=== PATIENT | male | born 1940 | race Caucasian/White ===

== ENCOUNTER 2022-06-24 10:59 | Inpatient (IN) | payer MEDICARE ==
[2022-06-24] MEDS ORDERED: Naloxone 0.4 MG/ML SDV IM PRN (16:22)
[2022-06-24] MEDS ORDERED: Magnesium Hydroxide 400 MG/5 ML Susp 30 ML Cup PO PRN (16:22)
[2022-06-24] MEDS ORDERED: oxyCODONE 5 MG Tab PO PRN (16:22)
[2022-06-24] MEDS ORDERED: Diclofenac Sodium 1% Gel 100 GM Tube TOP PRN (16:22)
[2022-06-24] MEDS ORDERED: Acetaminophen 325 MG Tab PO SCH (16:30)
[2022-06-24] MEDS ORDERED: traMADol 50 MG Tab PO SCH (16:30)
[2022-06-24] MEDS: Aspirin 325 MG Tab PO SCH (17:32)
[2022-06-24] MEDS: traMADol 50 MG Tab PO SCH ×2 (17:33→23:44)
[2022-06-24] MEDS ORDERED: Brimonidine 0.2% Ophth Soln 5 ML Bottle EYEBOTH SCH (18:00)
[2022-06-24] MEDS ORDERED: Timolol Maleate 0.5% Ophth Soln 5 ML Bottle EYEBOTH SCH (18:00)
[2022-06-24] MEDS: Pravastatin 20 MG Tab PO SCH (20:03)
[2022-06-24] MEDS: Tamsulosin 0.4 MG Cap.ER PO SCH (20:03)
[2022-06-24] MEDS: Acetaminophen 325 MG Tab PO SCH (20:04)
[2022-06-24] MEDS: Timolol Maleate 0.5% Ophth Soln 5 ML Bottle EYEBOTH SCH (20:05)
[2022-06-24] MEDS: Brimonidine 0.2% Ophth Soln 5 ML Bottle EYEBOTH SCH (20:07)
[2022-06-24] MEDS: Latanoprost 0.005% Ophth Soln 2.5 ML Bottle EYEBOTH SCH (20:07)
[2022-06-25] MEDS: Acetaminophen 325 MG Tab PO SCH ×4 (02:14→20:05)
[2022-06-25] MEDS: traMADol 50 MG Tab PO SCH ×3 (06:26→17:08)
[2022-06-25] MEDS: Metoprolol Succinate 25 MG Tab.ER PO SCH (07:04)
[2022-06-25] MEDS: Finasteride 5 MG Tab PO SCH (07:08)
[2022-06-25] MEDS: Aspirin 325 MG Tab PO SCH ×2 (07:08→17:08)
[2022-06-25] MEDS: Potassium Chloride 10 MEQ Tab.ER PO SCH (07:09)
[2022-06-25] MEDS: Omeprazole 20 MG Cap.CR PO SCH (07:09)
[2022-06-25] MEDS: Fish Oil/Omega-3 Fatty Acids 1 Gm Cap PO SCH (07:09)
[2022-06-25] MEDS: Magnesium Oxide 400 MG Tab PO SCH (07:09)
[2022-06-25] MEDS: Lisinopril 10 MG Tab PO SCH (07:10)
[2022-06-25] MEDS: Levothyroxine 75 MCG Tab PO SCH (07:10)
[2022-06-25] MEDS: Hydrochlorothiazide 25 MG Tab PO SCH (07:10)
[2022-06-25] MEDS: Calcium Carbonate/Vitamin D3 1500 MG-400 Units Tab PO SCH (07:11)
[2022-06-25] MEDS: Timolol Maleate 0.5% Ophth Soln 5 ML Bottle EYEBOTH SCH ×2 (07:12→20:04)
[2022-06-25] MEDS: Brimonidine 0.2% Ophth Soln 5 ML Bottle EYEBOTH SCH ×2 (07:12→20:04)
[2022-06-25] MEDS: Polyethylene Glycol 3350 Powder 17 GM Packet PO SCH (07:12)
[2022-06-25] MEDS: Latanoprost 0.005% Ophth Soln 2.5 ML Bottle EYEBOTH SCH (20:04)
[2022-06-25] MEDS: Pravastatin 20 MG Tab PO SCH (20:06)
[2022-06-25] MEDS: Tamsulosin 0.4 MG Cap.ER PO SCH (20:07)
[2022-06-26] MEDS: traMADol 50 MG Tab PO SCH ×5 (00:58→17:50)
[2022-06-26] MEDS: Acetaminophen 325 MG Tab PO SCH ×4 (04:38→20:00)
[2022-06-26] MEDS: Aspirin 325 MG Tab PO SCH ×2 (07:38→17:50)
[2022-06-26] MEDS: Fish Oil/Omega-3 Fatty Acids 1 Gm Cap PO SCH (07:38)
[2022-06-26] MEDS: Omeprazole 20 MG Cap.CR PO SCH (07:39)
[2022-06-26] MEDS: Potassium Chloride 10 MEQ Tab.ER PO SCH (07:39)
[2022-06-26] MEDS: Finasteride 5 MG Tab PO SCH (07:39)
[2022-06-26] MEDS: Levothyroxine 75 MCG Tab PO SCH (07:39)
[2022-06-26] MEDS: Calcium Carbonate/Vitamin D3 1500 MG-400 Units Tab PO SCH (07:39)
[2022-06-26] MEDS: Magnesium Oxide 400 MG Tab PO SCH (07:40)
[2022-06-26] MEDS: Brimonidine 0.2% Ophth Soln 5 ML Bottle EYEBOTH SCH ×2 (07:40→20:00)
[2022-06-26] MEDS: Timolol Maleate 0.5% Ophth Soln 5 ML Bottle EYEBOTH SCH ×2 (07:42→20:00)
[2022-06-26] MEDS: Polyethylene Glycol 3350 Powder 17 GM Packet PO SCH (07:42)
[2022-06-26] MEDS: Hydrochlorothiazide 25 MG Tab PO SCH (07:49)
[2022-06-26] MEDS: Lisinopril 10 MG Tab PO SCH (07:49)
[2022-06-26] MEDS: Metoprolol Succinate 25 MG Tab.ER PO SCH (07:50)
[2022-06-26] MEDS: Tamsulosin 0.4 MG Cap.ER PO SCH (19:59)
[2022-06-26] MEDS: Latanoprost 0.005% Ophth Soln 2.5 ML Bottle EYEBOTH SCH (19:59)
[2022-06-26] MEDS: Pravastatin 20 MG Tab PO SCH (20:00)
[2022-06-27] MEDS: traMADol 50 MG Tab PO SCH ×5 (03:01→19:12)
[2022-06-27] MEDS: Acetaminophen 325 MG Tab PO SCH ×4 (03:56→21:25)
[2022-06-27] MEDS: Levothyroxine 75 MCG Tab PO SCH (08:04)
[2022-06-27] MEDS: Finasteride 5 MG Tab PO SCH (08:04)
[2022-06-27] MEDS: Potassium Chloride 10 MEQ Tab.ER PO SCH (08:04)
[2022-06-27] MEDS: Lisinopril 10 MG Tab PO SCH (08:04)
[2022-06-27] MEDS: Aspirin 325 MG Tab PO SCH ×2 (08:04→17:18)
[2022-06-27] MEDS: Magnesium Oxide 400 MG Tab PO SCH (08:04)
[2022-06-27] MEDS: Metoprolol Succinate 25 MG Tab.ER PO SCH (08:04)
[2022-06-27] MEDS: Omeprazole 20 MG Cap.CR PO SCH (08:04)
[2022-06-27] MEDS: Fish Oil/Omega-3 Fatty Acids 1 Gm Cap PO SCH (08:05)
[2022-06-27] MEDS: Timolol Maleate 0.5% Ophth Soln 5 ML Bottle EYEBOTH SCH ×2 (08:05→21:22)
[2022-06-27] MEDS: Calcium Carbonate/Vitamin D3 1500 MG-400 Units Tab PO SCH (08:05)
[2022-06-27] MEDS: Brimonidine 0.2% Ophth Soln 5 ML Bottle EYEBOTH SCH ×2 (08:05→21:21)
[2022-06-27] MEDS: Hydrochlorothiazide 25 MG Tab PO SCH (08:05)
[2022-06-27] MEDS: Polyethylene Glycol 3350 Powder 17 GM Packet PO SCH (08:11)
[2022-06-27] MEDS ORDERED: Saliva Substitute Oral Spray 120 ML Bottle MUCMEM PRN (16:22)
[2022-06-27] MEDS: Latanoprost 0.005% Ophth Soln 2.5 ML Bottle EYEBOTH SCH (21:18)
[2022-06-27] MEDS: Pravastatin 20 MG Tab PO SCH (21:23)
[2022-06-27] MEDS: Tamsulosin 0.4 MG Cap.ER PO SCH (21:24)
[2022-06-28] MEDS: traMADol 50 MG Tab PO SCH ×4 (00:19→17:03)
[2022-06-28] MEDS: Acetaminophen 325 MG Tab PO SCH ×4 (02:55→21:08)
[2022-06-28] MEDS: Timolol Maleate 0.5% Ophth Soln 5 ML Bottle EYEBOTH SCH ×2 (07:25→21:09)
[2022-06-28] MEDS: Brimonidine 0.2% Ophth Soln 5 ML Bottle EYEBOTH SCH ×2 (07:25→21:03)
[2022-06-28] MEDS: Metoprolol Succinate 25 MG Tab.ER PO SCH (07:25)
[2022-06-28] MEDS: Finasteride 5 MG Tab PO SCH (07:27)
[2022-06-28] MEDS: Levothyroxine 75 MCG Tab PO SCH (07:27)
[2022-06-28] MEDS: Aspirin 325 MG Tab PO SCH ×2 (07:28→17:03)
[2022-06-28] MEDS: Potassium Chloride 10 MEQ Tab.ER PO SCH (07:28)
[2022-06-28] MEDS: Lisinopril 10 MG Tab PO SCH (07:28)
[2022-06-28] MEDS: Calcium Carbonate/Vitamin D3 1500 MG-400 Units Tab PO SCH (07:28)
[2022-06-28] MEDS: Magnesium Oxide 400 MG Tab PO SCH (07:28)
[2022-06-28] MEDS: Hydrochlorothiazide 25 MG Tab PO SCH (07:28)
[2022-06-28] MEDS: Omeprazole 20 MG Cap.CR PO SCH (07:28)
[2022-06-28] MEDS: Fish Oil/Omega-3 Fatty Acids 1 Gm Cap PO SCH (07:29)
[2022-06-28] MEDS: Polyethylene Glycol 3350 Powder 17 GM Packet PO SCH (07:31)
[2022-06-28] MEDS: Tamsulosin 0.4 MG Cap.ER PO SCH (21:07)
[2022-06-28] MEDS: Pravastatin 20 MG Tab PO SCH (21:07)
[2022-06-28] MEDS: Latanoprost 0.005% Ophth Soln 2.5 ML Bottle EYEBOTH SCH (21:14)
[2022-06-29] MEDS: traMADol 50 MG Tab PO SCH ×5 (00:01→17:16)
[2022-06-29] MEDS: Acetaminophen 325 MG Tab PO SCH ×4 (03:05→20:32)
[2022-06-29] MEDS: Brimonidine 0.2% Ophth Soln 5 ML Bottle EYEBOTH SCH ×2 (07:10→20:40)
[2022-06-29] MEDS: Hydrochlorothiazide 25 MG Tab PO SCH (07:11)
[2022-06-29] MEDS: Calcium Carbonate/Vitamin D3 1500 MG-400 Units Tab PO SCH (07:11)
[2022-06-29] MEDS: Finasteride 5 MG Tab PO SCH (07:11)
[2022-06-29] MEDS: Timolol Maleate 0.5% Ophth Soln 5 ML Bottle EYEBOTH SCH ×2 (07:11→20:37)
[2022-06-29] MEDS: Lisinopril 10 MG Tab PO SCH (07:12)
[2022-06-29] MEDS: Metoprolol Succinate 25 MG Tab.ER PO SCH (07:13)
[2022-06-29] MEDS: Potassium Chloride 10 MEQ Tab.ER PO SCH (07:13)
[2022-06-29] MEDS: Magnesium Oxide 400 MG Tab PO SCH (07:13)
[2022-06-29] MEDS: Aspirin 325 MG Tab PO SCH ×2 (07:13→17:16)
[2022-06-29] MEDS: Fish Oil/Omega-3 Fatty Acids 1 Gm Cap PO SCH (07:13)
[2022-06-29] MEDS: Levothyroxine 75 MCG Tab PO SCH (07:13)
[2022-06-29] MEDS: Omeprazole 20 MG Cap.CR PO SCH (07:13)
[2022-06-29] MEDS: Polyethylene Glycol 3350 Powder 17 GM Packet PO SCH (08:01)
[2022-06-29] MEDS: Tamsulosin 0.4 MG Cap.ER PO SCH (20:31)
[2022-06-29] MEDS: Pravastatin 20 MG Tab PO SCH (20:31)
[2022-06-29] MEDS: Latanoprost 0.005% Ophth Soln 2.5 ML Bottle EYEBOTH SCH (20:33)
[2022-06-30] MEDS: traMADol 50 MG Tab PO SCH ×2 (01:28→06:00)
[2022-06-30] MEDS: Acetaminophen 325 MG Tab PO SCH ×4 (02:59→20:28)
[2022-06-30] MEDS: Aspirin 325 MG Tab PO SCH ×2 (07:31→17:28)
[2022-06-30] MEDS: Metoprolol Succinate 25 MG Tab.ER PO SCH (07:31)
[2022-06-30] MEDS: Hydrochlorothiazide 25 MG Tab PO SCH (07:32)
[2022-06-30] MEDS: Fish Oil/Omega-3 Fatty Acids 1 Gm Cap PO SCH (07:32)
[2022-06-30] MEDS: Magnesium Oxide 400 MG Tab PO SCH (07:32)
[2022-06-30] MEDS: Finasteride 5 MG Tab PO SCH (07:32)
[2022-06-30] MEDS: Calcium Carbonate/Vitamin D3 1500 MG-400 Units Tab PO SCH (07:32)
[2022-06-30] MEDS: Potassium Chloride 10 MEQ Tab.ER PO SCH (07:32)
[2022-06-30] MEDS: Lisinopril 10 MG Tab PO SCH (07:33)
[2022-06-30] MEDS: Levothyroxine 75 MCG Tab PO SCH (07:33)
[2022-06-30] MEDS: Omeprazole 20 MG Cap.CR PO SCH (07:33)
[2022-06-30] MEDS: Polyethylene Glycol 3350 Powder 17 GM Packet PO SCH (07:34)
[2022-06-30] MEDS: Timolol Maleate 0.5% Ophth Soln 5 ML Bottle EYEBOTH SCH ×2 (07:36→20:28)
[2022-06-30] MEDS: Brimonidine 0.2% Ophth Soln 5 ML Bottle EYEBOTH SCH ×2 (07:36→20:28)
[2022-06-30 07:41] LABS: ANION GAP 9.5 meq/L (7-15)
[2022-06-30] MEDS ORDERED: traMADol 50 MG Tab PO PRN (10:00)
[2022-06-30] MEDS: Latanoprost 0.005% Ophth Soln 2.5 ML Bottle EYEBOTH SCH (20:28)
[2022-06-30] MEDS: Pravastatin 20 MG Tab PO SCH (20:29)
[2022-06-30] MEDS: Tamsulosin 0.4 MG Cap.ER PO SCH (20:29)
[2022-06-30] MEDS ORDERED: Melatonin 3 MG Tab PO PRN (23:22)
[2022-07-01] MEDS: Acetaminophen 325 MG Tab PO SCH ×2 (04:15→09:05)
[2022-07-01] MEDS: Timolol Maleate 0.5% Ophth Soln 5 ML Bottle EYEBOTH SCH (07:49)
[2022-07-01] MEDS: Brimonidine 0.2% Ophth Soln 5 ML Bottle EYEBOTH SCH (07:50)
[2022-07-01] MEDS: Calcium Carbonate/Vitamin D3 1500 MG-400 Units Tab PO SCH (07:51)
[2022-07-01] MEDS: Aspirin 325 MG Tab PO SCH (07:51)
[2022-07-01] MEDS: Fish Oil/Omega-3 Fatty Acids 1 Gm Cap PO SCH (07:51)
[2022-07-01] MEDS: Hydrochlorothiazide 25 MG Tab PO SCH (07:52)
[2022-07-01] MEDS: Potassium Chloride 10 MEQ Tab.ER PO SCH (07:52)
[2022-07-01] MEDS: Levothyroxine 75 MCG Tab PO SCH (07:53)
[2022-07-01] MEDS: Magnesium Oxide 400 MG Tab PO SCH (07:53)
[2022-07-01] MEDS: Lisinopril 10 MG Tab PO SCH (07:54)
[2022-07-01] MEDS: Omeprazole 20 MG Cap.CR PO SCH (07:54)
[2022-07-01] MEDS: Finasteride 5 MG Tab PO SCH (07:55)
[2022-07-01] MEDS: Metoprolol Succinate 25 MG Tab.ER PO SCH (07:56)
[2022-07-01] MEDS: Polyethylene Glycol 3350 Powder 17 GM Packet PO SCH (07:58)
== END 2022-07-01 10:25 | disposition home health service (06) | DRG 561 ==
LOC: LL.MS 13:43
PROVIDERS: ADMIT Emergency Medicine; ATTEND Emergency Medicine
DX: Z47.1 Aftercare following joint replacement surgery (principal); Z96.642 Presence of left artificial hip joint; I10 Essential (primary) hypertension; K21.9 Gastro-esophageal reflux disease without esophagitis; N40.0 Benign prostatic hyperplasia without lower urinary tract symptoms; H40.2231 Chronic angle-closure glaucoma, bilateral, mild stage; M19.90 Unspecified osteoarthritis, unspecified site; E03.9 Hypothyroidism, unspecified; Z96.652 Presence of left artificial knee joint; E78.5 Hyperlipidemia, unspecified; Z79.82 Long term (current) use of aspirin; Z79.899 Other long term (current) drug therapy; Z87.891 Personal history of nicotine dependence
CPT/HCPCS: 36415; 80048; 85025; 97110-GP; 97161-GP; 97165-GO; 97530-GO; 97530-GP; 97535-GO; A9270-GY